=== PATIENT | male | born 1930 | race Caucasian/White ===

== ENCOUNTER → 2017-07-25 | Outpatient (CLI) | payer OTHER, MEDICARE ==
[~2017-07-25] MED LIST: ATEN50TA PO; ATOR40TA69 PO; BUSP7.5T7 PO; GLIM2TAB3 PO; LOPE2 PO; METF500T6 PO; PARO-37 PO; TAMS0.4C32 PO
== END | disposition home or self-care (01) ==
LOC: RAH 16:25
PROVIDERS: ATTEND Thoracic Surgery (Cardiothoracic Vascular Surgery)
DX: I70.212 Atherosclerosis of native arteries of extremities with intermittent claudication, left leg (principal); Z95.1 Presence of aortocoronary bypass graft
CPT/HCPCS: 93926